=== PATIENT | female | born 1970 | race Caucasian/White ===

== ENCOUNTER → 2017-01-20 | Outpatient (CLI) | payer OTHER | LOC: BMCIMAGING 13:24 | PROVIDERS: ATTEND Midwife | DX: N83.202 Unspecified ovarian cyst, left side (principal) ==

== ENCOUNTER → 2017-01-25 | Outpatient (CLI) | payer OTHER | LOC: BMCIMAGING 12:17 | PROVIDERS: ATTEND Midwife | DX: Z12.31 Encounter for screening mammogram for malignant neoplasm of breast (principal) | CPT/HCPCS: G0202 ==

== ENCOUNTER → 2017-01-31 | Outpatient (CLI) | payer OTHER ==
[~2017-01-31] MED LIST: GADOBUTROL 10 ML VIAL IVP ONE
== END ==
LOC: FIMAGING 13:49
PROVIDERS: ATTEND Midwife
DX: N83.202 Unspecified ovarian cyst, left side (principal)
CPT/HCPCS: A9585